=== PATIENT | male | born 1945 | race Caucasian/White ===

== ENCOUNTER 2018-03-30 14:26 | Inpatient (IN) | payer OTHER ==
[2018-03-30] MEDS ORDERED: ONDANSETRON 4 MG/2 ML VIAL IV PRN ×2 (15:11→15:13)
[2018-03-30] MEDS ORDERED: Levofloxacin500mg IV 500 MG/100 ML BAG IV ONE (15:13)
[2018-03-30] MEDS ORDERED: SODIUM CHLORIDE 0.9% 10ML INJ IV PRN (15:14)
[2018-03-30 16:00] VITALS: BMI 30.3
[2018-03-30] MEDS ORDERED: NACHLORIDE 0.45% 1,000 ML IV SCH (16:00)
[2018-03-30] MEDS ORDERED: Levofloxacin500mg IV 500 MG/100 ML BAG IV SCH (16:00)
[2018-03-30] MEDS: NACHLORIDE 0.45% 1,000 ML IV SCH (17:57)
[2018-03-30] MEDS: METRONIDAZOLE 500mg IVPB 500 MG/100 ML BAG IV SCH ×2 (18:00→22:59)
[2018-03-30] MEDS ORDERED: METRONIDAZOLE 500mg IVPB 500 MG/100 ML BAG IV SCH (18:00)
[2018-03-30 18:30] LABS: Urine Appearance CLEAR; Urine Bilirubin NEGATIVE (NEG); Urine Blood TRACE (NEG); Urine Color YELLOW; Urine Glucose NEGATIVE (NEG); Urine Protein 1+ (NEG); Urine Specific Gravity >=1.030 (1.005-1.030); Urine Urobilinogen 0.2 mg/dL (0.2-1.0); Urine pH 6.5 (5.0-7.0)
[2018-03-30] MEDS ORDERED: MORPHINE 4 MG/ML SYR IV PRN (18:45)
[2018-03-30 18:58] LABS: Urine Bacteria 20-50 /HPF (NONE SEEN); Urine Culture Reflex Order REFLEXED; Urine RBC <5 /HPF (NONE SEEN)
--- NOTE | 2018-03-30 19:28 | RAD REPORT ---
EXAM DESCRIPTION: US - Abdomen Exam Complete - 03/30/2018 5:40 pm CLINICAL HISTORY: Abdominal pain, pancreatitis COMPARISON: CT study March 30 FINDINGS: Gallbladder size is normal. No mobile gallstones confirmed. Patient has several 5 mm or le ss echogenic foci adherent to the gallbladder wall. No posterior acoustic shadowing. These are favore d to be polyps rather than adherent gallstones. No wall thickening or pericholecystic fluid. Common b ile duct is normal with no common duct stone identified. The liver and spleen show no suspicious find ings. Left lobe of the liver demonstrates a 7 mm cyst. No suspicious liver finding. The pancreas is o bscured. Pancreas is detailed on the earlier CT abdomen report. No hydronephrosis or suspicious mass in either kidney. Aorta and IVC are mostly obscured. Earlier CT study showed no suspicious finding. No measurable ascit es. No bulky lymphadenopathy. IMPRESSION: Small gallbladder polyps are identifiable. No gallstones confirmed. No acute gallbladder or biliary tree finding. Pancreas is obscured by bowel. Aorta IVC are also obscured. The structures are addressed in the CT st udy of the same date.
[2018-03-30] MEDS ORDERED: PANTOPRAZOLE 40 MG INJ IVP SCH (21:00)
[2018-03-30] MEDS: PANTOPRAZOLE 40 MG INJ IV SCH (21:22)
[2018-03-30] MEDS: SODIUM CHLORIDE 0.9% 10ML INJ IV SCH (21:23)
[2018-03-30] MEDS: MORPHINE 4 MG/ML SYR IV PRN (22:59)
[2018-03-31] MEDS: MORPHINE 4 MG/ML SYR IV PRN ×5 (02:50→20:35)
[2018-03-31] MEDS: NACHLORIDE 0.45% 1,000 ML IV SCH ×2 (02:50→12:24)
[2018-03-31 05:42] LABS: Absolute Lymphocytes (CBC) 1.2 K/uL (0.7-4.9); Absolute Monocytes 1.5 K/uL (0.1-1.3); Absolute Neutrophil 10.8 K/uL (1.8-8.0); Basophils % 0.2 % (0-1.3); Eosinophils % 1.2 % (0-4.4); Hematocrit 36.2 % (39.6-49.0); Lymphocytes % 8.7 % (15.3-44.8); MCH 31.1 pg (27.0-35.0); MCV 89.2 fL (80-100); MPV 8.7 fL (7.6-11.3); Monocytes % 10.9 % (3.3-12.3); RBC Red Blood Cell Count 4.06 M/uL (4.33-5.43)
[2018-03-31] MEDS: METRONIDAZOLE 500mg IVPB 500 MG/100 ML BAG IV SCH ×3 (06:37→17:50)
[2018-03-31 09:05] LABS: Albumin 2.9 g/dL (3.4-5.0); Bilirubin Total 0.7 mg/dL (0.2-1.0); Potassium 3.9 mmol/L (3.5-5.1)
[2018-03-31] MEDS: PANTOPRAZOLE 40 MG INJ IV SCH ×2 (10:14→20:35)
[2018-03-31] MEDS: SODIUM CHLORIDE 0.9% 10ML INJ IV SCH ×2 (10:15→20:38)
[2018-03-31] MEDS ORDERED: Ringers Lactate 1,000 ML IV ONE (15:29)
[2018-03-31] MEDS: CIPROFLOXACIN 400mg IV 400 MG/200 ML BAG IV SCH (15:43)
[2018-03-31] MEDS: Ringers Lactate 1,000 ML IV SCH ×2 (17:51→20:38)
--- NOTE | 2018-03-31 22:27 | CON ---
Date of Consultation: 03/31/2018 Reason For Consultation: Acute idiopathic pancreatitis. History Of Present Illness: This patient is a 73-year-old white male with history of hypertension, p re-glaucoma; benign prostatic hypertrophy, status post UroLift; and right total knee replacement. Th e patient presented to hospital with generalized abdominal pain, but without nausea, vomiting, fevers , chills, night sweats. Ultrasound of the abdomen revealed small gallbladder polyps with no gallstones perform, common bile d uct is within normal limits. There is no gallbladder wall thickening or pericholecystic fluid. He h as a 7-mm left lobe cyst, but otherwise unremarkable. CT of the abdomen and pelvis as an outpatient on the same day prior to this admission did reveal mild pancreatitis. Social History: The patient is , 2 kids, 5 grand kids. No tobacco. No alcohol. Family History: Father of Alzheimer disease. Mother of congestive heart failure. Medications: Medications in the hospital include Cipro, half-normal saline at 100 cc an hour, losart an, morphine, Zofran, Protonix. Allergies: NKDA. Review of Systems: The patient has generalized abdominal pain, but denies any nausea, vomiting, fevers, chills, night sw eats, melena, hematochezia, hematemesis, coffee-ground emesis, hematuria, dysuria, polydipsia, chest pain, shortness of breath, seizure, syncope, depression, anxiety, muscle aches, joint aches, backache s. No infection, trauma to the abdomen. No history of hypercholesterolemia or other he reports. Physical Examination: Vital Signs: The patient is 6 feet 1, 230 pounds, BMI of 30.3 kg/sq m. General: He is an obese male, sitting in a chair, no acute distress, talking quite rapidly with his in the chair, quite active and energetic. HEENT: Normocephalic, atraumatic. Anicteric. Pupils equal, round, and reactive to light. Extraocu lar movements intact. Oropharynx is clear. Neck: Supple. No masses. Respirations: Clear to auscultation bilaterally. Cardiac: Regular rate and rhythm. No gallops or rubs. Abdomen: Positive bowel sounds. Soft, nondistended. No hepatosplenomegaly. He has some mild midep igastric tenderness, but otherwise no significant pain, currently on his pain medicines. He says the max pain was 6/10, now approximately 2/10. Radiologic Data: CT ultrasound of abdomen reveals small gallbladder polyps in gallbladder, but no pe richolecystic fluid. No gallbladder wall thickening. Common bile duct is normal caliber. There was a 7-mm cyst in the left lobe of the liver, otherwise negative. CT abdomen and pelvis done yesterday reveals mild acute pancreatitis and mild fatty liver. There was mild peripancreatic fat stranding n oted compatible mild pancreatitis. There was also some mild prostatomegaly is seen as well. Of note , he had the UroLift procedure as he reported. Impression: Acute idiopathic pancreatitis. The patient denies alcohol. No gallstones seen on ultra sound of abdomen with normal common bile duct and only a few very small polyps in the gallbladder. T he patient has generalized abdominal pain since Monday 4 days ago, max of 6/10, lasting approximatel y 1 day at most, but now down to 2/10. He also noticed flatus and small amount of stool yesterday. He denies any infection, trauma, history of hypercholesterolemia or hypertriglyceridemia, high calciu m levels or scorpion bites or other possible inciting factors for pancreatitis. His weight has not c hanged. No night sweats. No nausea, vomiting, fevers, chills. History of hypertension, pre-glaucoma; right total knee replacement; UroLift procedure due to benign prostatic hypertrophy approximately in 2016. Recommendations: 1.Check lipid panel. Check CA-19-9. 2.Check MRCP. 3.Change IV fluids to lactated Ringer's from half-normal saline and increase the rate from 100 to 150. Monitor labs to ensure his pancreatitis resolves. RENEA/MARITZA Voice ID: [id number] Report ID: [id number]
--- NOTE | 2018-03-31 22:57 | HP ---
Date of Admission: 03/30/2018 Chief Complaint: Abdominal pain. History Of Present Illness: A 73-year-old male was brought to the office with 2- to 3-day history of abdominal pain. Outpatient CAT scan showed evidence of pancreatitis. The patient was admitted. Th e patient's subsequent lab showed white count of 15,000 and lipase over 2000 confirming the diagnosis . The patient denies any history of blood in the stools. The patient claims to have a colonoscopy n early 5 years ago. Past Medical History: Positive for hypertension. The patient claims that he had a gallbladder stone 1 time; however, this is not from documented history. Family History: Noncontributory. Allergies: NO KNOWN ALLERGIES. Medications: Losartan for his hypertension. Review of Systems: No chest pain, fever. Physical Examination: General: Revealed a 73-year-old male in moderate pain. Vital Signs: Normal except for low-grade fever. HEENT: No icterus. Neck: Supple. JVD negative. Chest: Clear. Heart: Regular. Abdomen: Tender umbilical area. Bowel sounds present. Extremities: No edema. Laboratory Data: White count 15,000, lipase over 2000. CAT scan of the abdomen outpatient evidence of pancreatitis. Ultrasound of the abdomen, multiple polyps, gallbladder. Assessment: 1.Pancreatitis, cause unclear. 2.Hypertension. Plan: N.p.o., IV fluids, GI consultation, IV antibiotic and Protonix. EBONY/MARITZA Voice ID: [id number]
[2018-04-01] MEDS: METRONIDAZOLE 500mg IVPB 500 MG/100 ML BAG IV SCH ×4 (00:29→17:23)
[2018-04-01] MEDS: MORPHINE 4 MG/ML SYR IV PRN ×2 (00:30→04:39)
[2018-04-01] MEDS: CIPROFLOXACIN 400mg IV 400 MG/200 ML BAG IV SCH ×2 (04:38→15:45)
[2018-04-01] MEDS: Ringers Lactate 1,000 ML IV SCH ×3 (04:39→17:23)
[2018-04-01 06:07] LABS: Absolute Lymphocytes (CBC) 1.2 K/uL (0.7-4.9); Absolute Monocytes 1.2 K/uL (0.1-1.3); Absolute Neutrophil 9.1 K/uL (1.8-8.0); Basophils % 0.3 % (0-1.3); Eosinophils % 1.9 % (0-4.4); Hematocrit 35.4 % (39.6-49.0); MCH 30.9 pg (27.0-35.0); MCV 90.2 fL (80-100); MPV 8.8 fL (7.6-11.3); Monocytes % 10.1 % (3.3-12.3); RBC Red Blood Cell Count 3.92 M/uL (4.33-5.43)
[2018-04-01 06:14] LABS: ALT/SGPT 25 U/L (12-78); AST/SGOT 16 U/L (15-37); Albumin 2.6 g/dL (3.4-5.0); Alkaline Phosphatase 77 U/L (45-117); BUN Blood Urea Nitrogen 10 mg/dL (7-18); Bicarbonate 26 mmol/L (21-32); Bilirubin Direct 0.2 mg/dL (0-0.2); Bilirubin Total 0.5 mg/dL (0.2-1.0); Glucose Level 106 mg/dL (74-106); Lipase 1071 U/L (73-393); Magnesium 2.1 mg/dL (1.8-2.4); Phosphorus 2.3 mg/dL (2.5-4.9); Potassium 3.8 mmol/L (3.5-5.1); Protein, Total 6.5 g/dL (6.4-8.2); Sodium Level 135 mmol/L (136-145)
[2018-04-01] MEDS: PANTOPRAZOLE 40 MG INJ IV SCH ×2 (08:48→20:18)
[2018-04-01] MEDS: LOSARTAN POTASSIUM 50 MG TABLET PO SCH (08:48)
[2018-04-01] MEDS: SODIUM CHLORIDE 0.9% 10ML INJ IV SCH ×2 (08:49→20:19)
--- NOTE | 2018-04-01 20:28 | PN ---
The patient doing better. The patient is scheduled for MRCP in a.m. to see whether he has obstructiv e lesion or other pathology causing his pancreatitis. The patient will be continued on the same aster gement as recommended by GI Service. EBONY/MARITZA Voice ID: [id number] Report ID: [id number]
[2018-04-01] MEDS: DIPHENHYDRAMINE 25 MG TAB/CAP PO PRN (22:08)
[2018-04-02] MEDS: METRONIDAZOLE 500mg IVPB 500 MG/100 ML BAG IV SCH ×5 (00:56→23:20)
[2018-04-02] MEDS: Ringers Lactate 1,000 ML IV SCH ×5 (01:10→23:21)
[2018-04-02] MEDS: CIPROFLOXACIN 400mg IV 400 MG/200 ML BAG IV SCH ×2 (05:08→15:54)
--- NOTE | 2018-04-02 08:32 | RAD REPORT ---
EXAM DESCRIPTION: MRI - Cholangiogram - 04/02/2018 8:17 am CLINICAL HISTORY: Pancreatitis COMPARISON: Abdomen Pelvis W Contrast dated 03/30/2018 FINDINGS: Three-dimensional MRCP was performed using maximum intensity projection reconstruction on the same work station. No intrahepatic biliary tree dilatation is seen. The common bile duct is normal caliber without evide nce of retained stone, stricture or mass. Dilatation of the side branches and main pancreatic duct is seen involving the tail the pancreas. The gallbladder is unremarkable. Limited T2 sequences through the abdomen demonstrates no bulky adenopathy, significant free fluid or abscess. IMPRESSION: No evidence of common bile duct stone or significant biliary obstruction. Pancreatic duct in the tail shows mild dilatation along with dilatation of the side branches.
[2018-04-02 10:16] LABS: Magnesium 2.3 mg/dL (1.8-2.4); Phosphorus 2.9 mg/dL (2.5-4.9); Potassium 3.9 mmol/L (3.5-5.1)
[2018-04-02] MEDS: PANTOPRAZOLE 40 MG INJ IV SCH ×2 (10:25→20:44)
[2018-04-02] MEDS: SODIUM CHLORIDE 0.9% 10ML INJ IV SCH ×2 (10:25→20:44)
[2018-04-02] MEDS: LOSARTAN POTASSIUM 50 MG TABLET PO SCH (10:25)
--- NOTE | 2018-04-02 19:16 | P.PN ---
Subjective Date of Service: 04/01/18 Chief Complaint: Acute pancreatitis Subjective: Improving (Less abdominal pain. Feels better.) Review of Systems 10-point ROS is otherwise unremarkable Gastrointestinal: Abdominal Pain (Improved) Physical Examination - Vital Signs Temperature: 98.6 F Blood Pressure: 148/75 Pulse: 80 Respirations: 18 Pulse Ox (%): 96 - Physical Exam General: Alert, In no apparent distress, Oriented x3, Cooperative HEENT: Atraumatic, Normocephalic, PERRLA, EOMI Neck: Supple Cardiovascular: Normal pulses Gastrointestinal: No rebound, No guarding, Tenderness (mild at most) Neurological: Normal speech, Normal strength at 5/5 x4 extr - Studies Laboratory Data (last 24 hrs) 04/02/18 09:52: Lipase 940 H 04/02/18 09:52: Sodium 138, Potassium 3.9, BUN 9, Creatinine 0.90, Glucose 100, Phosphorus 2.9, Magnesium 2.3 Microbiology Data (last 24 hrs): 03/30/18 18:03 Clean Catch Urine [place] Count - Final >100,000 CFU/ML. 03/30/18 18:03 Clean Catch Urine - Final Enterococcus Faecalis Assessment And Plan - Current Problems (Diagnosis) (1) Acute pancreatitis Current Visit: Yes Status: Acute (2) UTI (urinary tract infection) Current Visit: Yes Status: Acute - Plan REC: 1) continue IVFs 2) monitor labs 3) ice chips
[2018-04-02] MEDS: DIPHENHYDRAMINE 25 MG TAB/CAP PO PRN (21:56)
--- NOTE | 2018-04-02 23:31 | PN ---
Subjective: The patient's lipase is still 900. His abdominal pain, however, is better. He was give n clear liquids and ice chips to see how he would tolerate. Pending that, management will be continu ed as there is no evidence of biliary tract stone or obstruction. EBONY/MARITZA Voice ID: [id number] Report ID: [id number]
[2018-04-03] MEDS: CIPROFLOXACIN 400mg IV 400 MG/200 ML BAG IV SCH (03:42)
[2018-04-03] MEDS: Ringers Lactate 1,000 ML IV SCH ×4 (04:00→23:32)
[2018-04-03] MEDS: METRONIDAZOLE 500mg IVPB 500 MG/100 ML BAG IV SCH (05:19)
[2018-04-03 05:40] LABS: Absolute Lymphocytes (CBC) 1.4 K/uL (0.7-4.9); Absolute Neutrophil 6.4 K/uL (1.8-8.0); Basophils % 0.4 % (0-1.3); Eosinophils % 4.2 % (0-4.4); Hematocrit 34.9 % (39.6-49.0); Lymphocytes % 14.9 % (15.3-44.8); MCH 30.9 pg (27.0-35.0); MCV 89.2 fL (80-100); MPV 8.1 fL (7.6-11.3); Monocytes % 10.6 % (3.3-12.3); RBC Red Blood Cell Count 3.91 M/uL (4.33-5.43)
[2018-04-03 05:54] LABS: Magnesium 2.1 mg/dL (1.8-2.4); Phosphorus 2.9 mg/dL (2.5-4.9); Potassium 4.1 mmol/L (3.5-5.1)
[2018-04-03] MEDS: LOSARTAN POTASSIUM 50 MG TABLET PO SCH (09:16)
[2018-04-03] MEDS: PANTOPRAZOLE 40 MG INJ IV SCH ×2 (09:16→20:04)
[2018-04-03] MEDS: SODIUM CHLORIDE 0.9% 10ML INJ IV SCH ×2 (09:17→20:04)
--- NOTE | 2018-04-03 13:15 | P.PN ---
Subjective Date of Service: 04/03/18 Chief Complaint: Acute pancreatitis Subjective: Improving (Less abdominal pain, minimal at most. Cipro & Flagyl can cause elevation in lipase and pancreatitis and have been d/c'd today.) Review of Systems 10-point ROS is otherwise unremarkable Gastrointestinal: Abdominal Pain (improving) Physical Examination - Vital Signs Temperature: 98.2 F Blood Pressure: 122/73 Pulse: 79 Respirations: 18 Pulse Ox (%): 98 - Physical Exam General: Alert, In no apparent distress, Oriented x3, Cooperative HEENT: Atraumatic, Normocephalic, PERRLA, EOMI Neck: Supple Respiratory: Normal air movement Cardiovascular: Normal pulses Gastrointestinal: No rebound, No guarding, Tenderness (minimal at most) Neurological: Normal speech, Normal strength at 5/5 x4 extr - Studies Laboratory Data (last 24 hrs) 04/03/18 05:25: WBC 9.1 D, Hgb 12.1 L, Hct 34.9 L, Plt Count 265 04/03/18 05:25: Sodium 137, Potassium 4.1, BUN 9, Creatinine 0.90, Glucose 112 H , Phosphorus 2.9, Magnesium 2.1, Amylase 56, Lipase 935 H Microbiology Data (last 24 hrs): 03/30/18 18:03 Clean Catch Urine [place] Count - Final >100,000 CFU/ML. 03/30/18 18:03 Clean Catch Urine - Final Enterococcus Faecalis Assessment And Plan - Current Problems (Diagnosis) (1) Acute pancreatitis Current Visit: Yes Status: Acute Comment: Improving (2) UTI (urinary tract infection) Current Visit: Yes Status: Acute - Plan REC: 1) continue IVFs 2) monitor labs 3) ice chips / water & juice 4) d/c Cipro & Flagyl
[2018-04-03] MEDS: DIPHENHYDRAMINE 25 MG TAB/CAP PO PRN (20:54)
--- NOTE | 2018-04-03 21:42 | PN ---
The patient is doing better. He has minimal tenderness in the epigastric area. His lipase is still over 900. The patient in view of this will be continued on the same plan of management pending the G I recommendations. FLIP Voice ID: [id number] Report ID: [id number]
[2018-04-04 00:58] VITALS: O2SAT 98
[2018-04-04] MEDS: Ringers Lactate 1,000 ML IV SCH ×3 (05:51→21:52)
[2018-04-04] MEDS: PANTOPRAZOLE 40MG TABLET PO SCH ×2 (08:54→17:40)
[2018-04-04] MEDS: SODIUM CHLORIDE 0.9% 10ML INJ IV SCH ×2 (08:55→21:00)
[2018-04-04] MEDS: LOSARTAN POTASSIUM 50 MG TABLET PO SCH (08:55)
[2018-04-04 13:54] LABS: Amylase Level 71 U/L (25-115); Lipase 1391 U/L (73-393)
[2018-04-04] MEDS: DIPHENHYDRAMINE 25 MG TAB/CAP PO PRN (21:52)
--- NOTE | 2018-04-04 22:09 | PN ---
Subjective: The patient still has mild pain; however, he tolerated the ice chips and water. The pat ient currently is on clear liquid diet. His amylase is normal, but lipase is still elevated. Pendchandler koch recommendations from Dr. Robison, he will be continued on the same management. EBONY/MARITZA Voice ID: [id number] Report ID: [id number]
[2018-04-05 06:00] LABS: Potassium 4.2 mmol/L (3.5-5.1)
[2018-04-05 06:02] LABS: Absolute Lymphocytes (CBC) 1.6 K/uL (0.7-4.9); Absolute Monocytes 0.8 K/uL (0.1-1.3); Absolute Neutrophil 5.3 K/uL (1.8-8.0); Basophils % 0.9 % (0-1.3); Eosinophils % 4.2 % (0-4.4); Hematocrit 36.9 % (39.6-49.0); Lymphocytes % 20.3 % (15.3-44.8); MCH 30.4 pg (27.0-35.0); MCV 88.8 fL (80-100); MPV 8.4 fL (7.6-11.3); Monocytes % 9.5 % (3.3-12.3); RBC Red Blood Cell Count 4.15 M/uL (4.33-5.43)
[2018-04-05] MEDS: Ringers Lactate 1,000 ML IV SCH (06:15)
[2018-04-05] MEDS: PANTOPRAZOLE 40MG TABLET PO SCH (06:33)
[2018-04-05 08:24] VITALS: BP 125/72; TEMP 97.5
[2018-04-05] MEDS: SODIUM CHLORIDE 0.9% 10ML INJ IV SCH (08:36)
[2018-04-05] MEDS: LOSARTAN POTASSIUM 50 MG TABLET PO SCH (08:36)
== END 2018-04-05 10:42 | disposition home or self-care (01) | DRG 439 ==
LOC: 4TH 14:38 → OBSVTOIN 03-31 11:05
PROVIDERS: ADMIT Internal Medicine; ATTEND Internal Medicine
DX: K85.00 Idiopathic acute pancreatitis without necrosis or infection (principal); N39.0 Urinary tract infection, site not specified; I10 Essential (primary) hypertension; N40.0 Benign prostatic hyperplasia without lower urinary tract symptoms; Z96.651 Presence of right artificial knee joint; B95.2 Enterococcus as the cause of diseases classified elsewhere
CPT/HCPCS: 36415; 74177; 74181; 76700; 80048; 80053; 80061; 80076; 81001; 82150; 83605; 83690; 83735; 84100; 85025; 86301; 87040; 87077; 87086; 87088; 87186; C9113; G0378; G0379; J0744; Q9967